=== PATIENT | male | born 1980 | race Two or more races ===

== ENCOUNTER 2020-02-09 15:02 | Emergency (ER) | payer OTHER ==
[~2020-02-09] VITALS: Ht 182.9 cm; Wt 86.2 kg
[2020-02-09 15:20] VITALS: BP 101/53
[2020-02-09] MEDS ORDERED: CETIRIZINE HCL 10 MG TABLET PO STA (15:22)
[2020-02-09] MEDS ORDERED: predniSONE 20 MG TABLET PO ONE (15:30)
[2020-02-09] MEDS ORDERED: AZITHROMYCIN 250 MG TABLET. PO ONE (15:30)
[2020-02-09] MEDS ORDERED: metroNIDAZOLE 500 MG TABLET PO ONE (15:30)
[2020-02-09] MEDS ORDERED: LIDOCAINE 1% PF 30 ML VIAL. INJ ONE (15:30)
[2020-02-09] MEDS ORDERED: cefTRIAXone IM 1 GM VIAL IM ONE (15:30)
[2020-02-09] MEDS ORDERED: DOXY100T PO (15:43)
--- NOTE | 2020-02-09 15:43 | PHYS DOC ---
Past History Past Medical History: HIV, Hepatitis, STD Alcohol Use: None Adult General Chief Complaint Chief Complaint: SEXUALLY TRANSMITTED DISEASE HPI HPI Patient is a 39-year-old male patient with history of HIV currently on medications, hepatitis, STDs, who presents to the ED today complaining of dysuria and penile discharge that began yesterday. Patient reports having unprotected sex. Review of Systems Review of Systems Constitutional: Denies fever or chills [] GI: Denies abdominal pain, nausea, vomiting, bloody stools or diarrhea [] : Reports dysuria and penile discharge, denies hematuria [] Musculoskeletal: Denies back pain or joint pain [] Integument: Denies rash or skin lesions [] Neurologic: Denies headache, focal weakness or sensory changes [] All other systems were reviewed and found to be within normal limits, except as documented in this note. Current Medications Current Medications Current Medications Medications (Trade) Dose Ordered Sig/Johan Start Time Stop Time Status Last Admin Dose Admin Azithromycin (Zithromax) 1,000 mg 1X ONCE 02/09/20 15:30 02/09/20 15:33 DC Ceftriaxone Sodium (Rocephin Im) 1 gm 1X ONCE 02/09/20 15:30 02/09/20 15:33 DC Cetirizine HCl (ZyrTEC) 10 mg 1X STAT 02/09/20 15:22 02/09/20 15:33 DC Lidocaine HCl (Lidocaine 1% Pf) 2 ml 1X ONCE 02/09/20 15:30 02/09/20 15:33 DC Metronidazole (Flagyl) 2,000 mg 1X ONCE 02/09/20 15:30 02/09/20 15:33 DC Prednisone (Prednisone) 60 mg 1X ONCE 02/09/20 15:30 02/09/20 15:33 DC Allergies Allergies Allergies Coded Allergies Type Severity Reaction Last Updated Verified Penicillins Allergy Mild Rash 02/09/20 Yes Physical Exam Physical Exam Constitutional: Well developed, well nourished, no acute distress, non-toxic appearance. [] Male exam deferred. Skin: Warm, dry, no erythema, no rash. [] Back: No tenderness, no CVA tenderness. [] Extremities: No tenderness, no cyanosis, no clubbing, ROM intact, no edema. [] Neurologic: Alert and oriented X 3, normal motor function, normal sensory function, no focal deficits noted. [] Psychologic: Affect normal, judgement normal, mood normal. [] Current Patient Data Vital Signs Vital Signs Date Time Temp Pulse Resp B/P (MAP) Pulse Ox O2 Delivery O2 Flow Rate FiO2 02/09/20 15:20 98.8 96 16 101/53 (69) 100 Room Air EKG EKG [] Radiology/Procedures Radiology/Procedures [] Heart Score Risk Factors: Risk Factors: DM, Current or recent (<one month) smoker, HTN, HLP, family history of CAD, obesity. Risk Scores: Risk Factors: DM, Current or recent (<one month) smoker, HTN, HLP, family history of CAD, obesity. Course & Med Decision Making Course & Med Decision Making Pertinent Labs and Imaging studies reviewed. (See chart for details) This is a 39-year-old male patient HIV positive history of STDs presenting today complaining of penile discharge that began yesterday. Also complaining of dysuria. Was given Flagyl Rocephin and azithromycin in the ED. Discharged with doxycycline. STD education provided. Dragon Disclaimer Dragon Disclaimer This electronic medical record was generated, in whole or in part, using a voice recognition dictation system. Departure Departure: Impression: Primary Impression: Concern about STD in male without diagnosis Disposition: 01 DC HOME SELF CARE/HOMELESS Condition: STABLE Referrals: PCP,NO (PCP) Follow-up with your own doctor or the health department Patient Instructions: Sexually Transmitted Diseases-[employer] Additional Instructions: You were treated for sexually transmitted diseases. Use protection at all times. Do not have any intercourse for 2 weeks. Follow-up with your primary care doctor or the health department for further STD concerns Scripts Doxycycline Hyclate (DOXYCYCLINE HYCLATE) 100 Mg Tablet 1 TAB PO BID, #20 TAB Prov: RAFAEL AGUAYO [employer] BR[employer]ER 02/09/20 RAFAEL AGUAYO [employer]ER Feb 09, 2020 15:43
[2020-02-09 15:59] LABS: BILIRUBIN,URINE NEG (NEG); CLARITY,URINE CLOUDY; COLOR,URINE COLORLESS; GLUCOSE,URINE NEG (NEG)
[2020-02-09 16:00] LABS: NITRITE,URINE NEG (NEG); UROBILINOGEN,URINE 0.2 mg/dL (0.2 mg/dL)
[2020-02-09 16:01] LABS: BACTERIA,URINE FEW /HPF (0-FEW); RBC,URINE TNTC /HPF (0-2)
== END 2020-02-09 16:01 | disposition home or self-care (01) ==
LOC: ER 15:02
DX: R30.0 Dysuria (principal); R36.9 Urethral discharge, unspecified; K75.9 Inflammatory liver disease, unspecified; Z21 Asymptomatic human immunodeficiency virus [HIV] infection status; Z20.2 Contact with and (suspected) exposure to infections with a predominantly sexual mode of transmission; Z88.0 Allergy status to penicillin
CPT/HCPCS: 81001; 96372; 99284; J0456; J0696; J7512